=== PATIENT | male | born 1940 | race African-American/Black ===

== ENCOUNTER 2019-10-23 07:20 | Inpatient (IN) | payer OTHER ==
[~2019-10-23] VITALS: Ht 182.9 cm; Wt 97.1 kg
[2019-10-23 08:01] LABS: BASOPHILS % 0.6 % (0.0-2.0); EOSINOPHILS % 6.4 % (0.0-5.0); HEMATOCRIT. 40.8 % (42.0-52.0); HEMOGLOBIN. 13.4 g/dL (14.0-18.0); LYMPHOCYTES % 18.1 % (20.0-50.0); MEAN CORPUSCULAR HEMOGLOBIN 27.1 pg (28.0-32.0); MEAN CORPUSCULAR VOLUME 82.9 fL (80.0-94.0); MONOCYTES % 7.6 % (2.0-8.0); NEUTROPHILS % 67.3 % (40.0-76.0); PLATELET 180 x1000/uL (130-400); RED BLOOD CELL COUNT 4.93 mill/uL (4.7-6.1); RED CELL DISTRIBUTION WIDTH 14.5 % (11.6-14.6)
[2019-10-23 08:07] LABS: CHLORIDE 106 mEq/L (98-107)
[2019-10-23 08:09] LABS: INR 1.1; PROTHROMBIN TIME 11.9 sec (9.6-11.0)
[2019-10-23 08:32] LABS: ETHANOL BLOOD < 10 mg/dL
[2019-10-23 08:33] LABS: CLARITY URINE CLEAR (CLEAR); COLOR URINE YELLOW (YELLOW); KETONES URINE NEGATIVE (NEGATIVE); LEUKOCYTE ESTERASE URINE NEGATIVE (NEGATIVE); NITRITE URINE NEGATIVE (NEGATIVE); OCCULT BLOOD URINE NEGATIVE (NEGATIVE); PH URINE 7.5 (4.5-8.0); PROTEIN URINE NEGATIVE (NEGATIVE); SPECIFIC GRAVITY URINE 1.017 (1.005-1.030); UROBILINOGEN URINE 0.2 E.U./dL (0.2-1.0)
[2019-10-23 08:36] LABS: LDL CHOLESTEROL 97 mg/dL (5-100)
[2019-10-23 08:53] LABS: *AMPHETAMINES SCREEN URINE NEGATIVE (NEGATIVE); *BARBITURATES SCREEN URINE NEGATIVE (NEGATIVE); *COCAINE SCREEN URINE NEGATIVE (NEGATIVE); METHADONE URINE SCREEN NEGATIVE (NEGATIVE); OPIATES URINE SCREEN NEGATIVE (NEGATIVE); PHENCYCLIDINE URINE SCREEN NEGATIVE (NEGATIVE)
[2019-10-23 08:54] LABS: *BENZODIAZEPINES SCREEN URINE NEGATIVE (NEGATIVE); CANNABINOID URINE SCREEN NEGATIVE (NEGATIVE)
[2019-10-23] MEDS ORDERED: DIPHENHYDRAMINE 12.5MG/5ML UDC PO PRN (09:15)
[2019-10-23] MEDS ORDERED: ACETAMINOPHEN 325MG TABLET PO PRN (09:15)
[2019-10-23] MEDS ORDERED: DEXTROSE 50% WATER 50ML SYRINGE IV PRN (09:15)
[2019-10-23] MEDS: ONDANSETRON HCL 4MG/2ML INJ IV PRN ×3 (09:57→20:35)
[2019-10-23] MEDS: ENOXAPARIN 100MG/ML SYR SUBCUT SCH ×2 (09:57→20:28)
[2019-10-23] MEDS: LOSARTAN POTASSIUM 100 MG TABLET PO SCH (09:57)
[2019-10-23] MEDS: MECLIZINE 25MG TABLET PO PRN ×2 (09:58→20:35)
[2019-10-23] MEDS ORDERED: POTASSIUM CHLORIDE 20MEQ TABLET SR PO SCH (10:00)
[2019-10-23] MEDS: BLOOD SUGAR DIAGNOSTIC STRIP TEST SCH ×3 (13:39→20:36)
[2019-10-23] MEDS: INSULIN LISPRO 100 UNITS/ML SUBCUT SCH ×3 (13:40→20:36)
[2019-10-23] MEDS ORDERED: DILTIAZEM HCL 5MG/ML 5ML VIAL IV PRN (14:00)
[2019-10-23 15:00] VITALS: BP 121/88
[2019-10-23 15:08] VITALS: BP 121/88
[2019-10-23] MEDS ORDERED: IOHEXOL-350 100 ML BOTTLE ONE (19:12)
[2019-10-23 20:00] VITALS: BP 120/85
[2019-10-23] MEDS: ATORVASTATIN CALCIUM 40MG TABLET PO SCH (20:29)
[2019-10-24] VITALS: BP 143/89
[2019-10-24 04:00] VITALS: BP 147/88
[2019-10-24] MEDS: INSULIN LISPRO 100 UNITS/ML SUBCUT SCH ×4 (05:41→21:34)
[2019-10-24] MEDS: BLOOD SUGAR DIAGNOSTIC STRIP TEST SCH ×4 (05:41→21:31)
[2019-10-24 07:25] LABS: BASOPHILS % 0.7 % (0.0-2.0); EOSINOPHILS % 5.2 % (0.0-5.0); HEMOGLOBIN. 13.4 g/dL (14.0-18.0); LYMPHOCYTES % 22.7 % (20.0-50.0); MEAN CORPUSCULAR VOLUME 82.7 fL (80.0-94.0); MEAN PLATELET VOLUME 9.3 fl (7.4-10.4); MONOCYTES % 8.5 % (2.0-8.0); NEUTROPHILS % 62.9 % (40.0-76.0); PLATELET 184 x1000/uL (130-400); RED BLOOD CELL COUNT 4.95 mill/uL (4.7-6.1); RED CELL DISTRIBUTION WIDTH 14.8 % (11.6-14.6)
[2019-10-24 08:00] VITALS: BP 135/72
[2019-10-24 08:24] LABS: CHLORIDE 105 mEq/L (98-107)
[2019-10-24] MEDS: LOSARTAN POTASSIUM 100 MG TABLET PO SCH (09:30)
[2019-10-24] MEDS: ASPIRIN 81MG TABLET PO SCH (09:30)
[2019-10-24] MEDS: ENOXAPARIN 100MG/ML SYR SUBCUT SCH ×2 (09:30→21:22)
[2019-10-24 12:00] VITALS: BP 141/87
[2019-10-24 21:01] VITALS: BP 144/91
[2019-10-24] MEDS: MECLIZINE 25MG TABLET PO PRN (21:21)
[2019-10-24] MEDS: ATORVASTATIN CALCIUM 40MG TABLET PO SCH (21:21)
[2019-10-25 01:04] VITALS: BP 113/88
[2019-10-25 05:03] VITALS: BP 152/103
[2019-10-25] MEDS: INSULIN LISPRO 100 UNITS/ML SUBCUT SCH (06:03)
[2019-10-25] MEDS: BLOOD SUGAR DIAGNOSTIC STRIP TEST SCH (06:03)
[2019-10-25 06:58] LABS: BASOPHILS % 1.3 % (0.0-2.0); EOSINOPHILS % 8.9 % (0.0-5.0); HEMATOCRIT. 42.3 % (42.0-52.0); HEMOGLOBIN. 14.1 g/dL (14.0-18.0); LYMPHOCYTES % 29.5 % (20.0-50.0); MEAN CORPUSCULAR HEMOGLOBIN 27.6 pg (28.0-32.0); MEAN CORPUSCULAR VOLUME 82.8 fL (80.0-94.0); MONOCYTES % 9.5 % (2.0-8.0); NEUTROPHILS % 50.8 % (40.0-76.0); PLATELET 192 x1000/uL (130-400); RED BLOOD CELL COUNT 5.11 mill/uL (4.7-6.1); RED CELL DISTRIBUTION WIDTH 14.7 % (11.6-14.6)
[2019-10-25 08:00] VITALS: BP 144/98
[2019-10-25 08:02] LABS: CHLORIDE 105 mEq/L (98-107)
[2019-10-25] MEDS: ENOXAPARIN 100MG/ML SYR SUBCUT SCH (09:22)
[2019-10-25] MEDS: ASPIRIN 81MG TABLET PO SCH (09:22)
[2019-10-25] MEDS: LOSARTAN POTASSIUM 100 MG TABLET PO SCH (09:22)
[2019-10-25] MEDS ORDERED: ASPI-1160 PO (10:25)
[2019-10-25] MEDS ORDERED: LIP40 PO (10:25)
[2019-10-25] MEDS ORDERED: LOSA100T3 PO (10:25)
[2019-10-25 10:44] VITALS: BP 144/98
== END 2019-10-25 13:55 | disposition home or self-care (01) | DRG 74 ==
LOC: ER 07:43 → EDBEDREQ 07:51 → 5WST 08:50 → EDBEDREQ 08:56 → EDBEDREQTM 08:56 → EDBEDREQSVC 08:56 → ENRESERV 12:53
PROVIDERS: ADMIT Internal Medicine; ATTEND Internal Medicine
DX: G90.8 Other disorders of autonomic nervous system (principal); J84.9 Interstitial pulmonary disease, unspecified; G93.40 Encephalopathy, unspecified; I48.91 Unspecified atrial fibrillation; I11.0 Hypertensive heart disease with heart failure; E11.9 Type 2 diabetes mellitus without complications; E87.6 Hypokalemia; I50.9 Heart failure, unspecified; J45.909 Unspecified asthma, uncomplicated; R00.1 Bradycardia, unspecified; R42 Dizziness and giddiness
CPT/HCPCS: 36415; 70496; 70498; 70551; 71045; 80048; 80053; 80305; 80320; 81003; 82962; 83721; 83880; 84484; 85025; 93005; 93306; 97112; 97116; 97162; 97166; 97535; 99291; J1650; J1815; J2405; J8597; Q0163; Q9967; G0480